=== PATIENT | female | born 1935 | race Caucasian/White ===

== ENCOUNTER 2017-01-03 02:18 | Emergency (ER) | payer MEDICARE, OTHER ==
[~2017-01-03] VITALS: Ht 149.9 cm; Wt 75.0 kg
[~2017-01-03 02:18] MED LIST: AMLO1TAB12 PO; BIMA12.5OS OU; CABE0.5T2 PO; CARV12.530 PO; DORZ210OS OP; GLIM2TAB3 PO; LORA10CA PO; METF500T4 PO; OMEP10 PO; SITA25 PO
[2017-01-03] MEDS ORDERED: CABE0.5T2 PO (02:28)
[2017-01-03] MEDS ORDERED: LEVO75 PO (02:28)
[2017-01-03] MEDS ORDERED: SITA100 PO (02:28)
[2017-01-03 02:37] LABS: GLUCOSE,POINT OF CARE 138 MG/DL (70-110)
[2017-01-03 02:39] LABS: BASOPHILS # (AUTO) 0.05 K/uL (0.00-0.20); BASOPHILS % (AUTO) 0.7 % (0.0-2.0); EOSINOPHILS # (AUTO) 0.33 K/uL (0.00-0.70); EOSINOPHILS % (AUTO) 4.69 % (1.0-6.0); HEMOGLOBIN 13.2 g/dL (12.0-16.0); LYMPHOCYTES # (AUTO) 2.2 K/uL (1.0-4.8); LYMPHOCYTES % (AUTO) 32.2 % (22.0-44.0); MEAN CORPUSCULAR HEMOGLOBIN 28.4 pg (26.0-34.0); MEAN CORPUSCULAR HGB CONC 32.9 G/dL (31.0-37.0); MEAN CORPUSCULAR VOLUME 86 fL (80-100); MONOCYTES # (AUTO) 0.5 K/uL (0.1-1.0); MONOCYTES % (AUTO) 7.4 % (2.0-9.0); NEUTROPHILS # (AUTO) 3.8 K/uL (1.8-7.7); NEUTROPHILS % (AUTO) 55.1 % (40.0-70.0); PLATELET COUNT (AUTO) 187 K/uL (150-450); RED BLOOD CELL COUNT(AUTO) 4.64 MIL/uL (4.00-5.20); RED CELL DISTRIBUTION WIDTH 14.6 % (11.5-14.5)
[2017-01-03 02:48] LABS: ANION GAP 3 mmol/L (8-16); CALCIUM, TOTAL 9.3 mg/dL (8.8-10.5); CARBON DIOXIDE 35 mmol/L (22-29); CHLORIDE 104 mmol/L (98-107); CREATININE 0.88 mg/dL (0.60-1.30); GLOMERULAR FILTR. RATE CALC > 60 mL/min (>60); POTASSIUM 4.2 mmol/L (3.5-5.1); SODIUM SERUM 142 mmol/L (136-145); UREA NITROGEN, BLOOD 11 mg/dL (7-18)
[2017-01-03 02:53] LABS: ALANINE AMINOTRANSFERASE 16 U/L (12-78); ALBUMIN 3.4 g/dL (3.4-5.0); ASPARTATE AMINOTRANSFERASE 17 U/L (15-37); BILIRUBIN,TOTAL 0.4 mg/dL (0.1-1.0); TOTAL PROTEIN, SERUM 7.4 g/dL (6.4-8.2)
[2017-01-03] MEDS ORDERED: CARVEDILOL 3.125 MG TABLET PO ONE (03:15)
[2017-01-03] MEDS ORDERED: ACETAMINOPHEN 500 MG TABLET PO ONE (03:15)
[2017-01-03 05:02] VITALS: BP 135/71
== END 2017-01-03 05:12 | disposition home or self-care (01) ==
LOC: EMS 02:22
DX: R51 Headache (principal); E11.9 Type 2 diabetes mellitus without complications; I11.9 Hypertensive heart disease without heart failure; I51.9 Heart disease, unspecified; Z88.0 Allergy status to penicillin; Z88.8 Allergy status to other drugs, medicaments and biological substances; Z85.89 Personal history of malignant neoplasm of other organs and systems
CPT/HCPCS: 70450; 82962; 99285

== ENCOUNTER 2019-01-11 13:59 | Emergency (ER) | payer MEDICARE, OTHER ==
[~2019-01-11] VITALS: Ht 149.9 cm; Wt 61.4 kg
[~2019-01-11 13:59] MED LIST changes: +LEVO75 PO; +METF-444 PO; -METF500T4 PO; +SITA100 PO; -SITA25 PO
[2019-01-11 14:15] LABS: GLUCOSE,POINT OF CARE 119 MG/DL (70-110)
[2019-01-11] MEDS ORDERED: LIDOCAINE 5% TRANSDERMAL PATCH TD ONE (15:15)
[2019-01-11] MEDS ORDERED: ACETAMINOPHEN 500 MG TABLET PO ONE (15:15)
[2019-01-11 16:52] VITALS: BP 155/77
== END 2019-01-11 17:04 | disposition home or self-care (01) ==
LOC: EMS 14:01
DX: S39.012A Strain of muscle, fascia and tendon of lower back, initial encounter (principal); M46.96 Unspecified inflammatory spondylopathy, lumbar region; E11.9 Type 2 diabetes mellitus without complications; I11.9 Hypertensive heart disease without heart failure; E03.9 Hypothyroidism, unspecified; Z88.0 Allergy status to penicillin; Z88.8 Allergy status to other drugs, medicaments and biological substances; W19.XXXA Unspecified fall, initial encounter; Y93.89 Activity, other specified; Y92.89 Other specified places as the place of occurrence of the external cause; Y99.8 Other external cause status
CPT/HCPCS: 72072; 72100

== ENCOUNTER → 2019-03-20 | Outpatient (CLI) | payer MEDICARE, OTHER ==
[~2019-03-20] MED LIST changes: -GLIM2TAB3 PO; +GLIM2TAB4 PO
== END | disposition home or self-care (01) ==
LOC: LABPV 14:52
PROVIDERS: ATTEND Internal Medicine
DX: R05 Cough (principal)

== ENCOUNTER 2021-01-07 11:44 | Emergency (ER) | payer MEDICARE, OTHER ==
[~2021-01-07] VITALS: Ht 152.4 cm; Wt 68.2 kg
[~2021-01-07 11:44] MED LIST changes: -BIMA12.5OS OU; +BIMA2.5D4 OU; +GLIM2TAB30 PO; -GLIM2TAB4 PO
[2021-01-07] MEDS ORDERED: AMLO-383 PO (12:08)
[2021-01-07] MEDS ORDERED: CARV25 PO (12:08)
[2021-01-07] MEDS ORDERED: ASPI-1227 PO (12:08)
[2021-01-07] MEDS ORDERED: ALEN70TA65 PO (12:08)
[2021-01-07] MEDS ORDERED: GABA-1181 PO (12:08)
[2021-01-07] MEDS ORDERED: METF-960 PO (12:08)
[2021-01-07] MEDS ORDERED: HYDR25TA84 PO (12:08)
[2021-01-07 13:15] LABS: BASOPHILS % (AUTO) 0.6 % (0.0-2.0); EOSINOPHILS % (AUTO) 1.5 % (1.0-6.0); HEMATOCRIT 39.7 % (36-46); HEMOGLOBIN 13.1 g/dL (12.0-16.0); LYMPHOCYTES # (AUTO) 0.9 K/uL (1.0-4.8); LYMPHOCYTES % (AUTO) 19.1 % (22.0-44.0); MEAN CORPUSCULAR VOLUME 88 fL (80-100); MONOCYTES # (AUTO) 0.4 K/uL (0.1-1.0); MONOCYTES % (AUTO) 8.1 % (2.0-9.0); NEUTROPHILS # (AUTO) 3.3 K/uL (1.8-7.7); NEUTROPHILS % (AUTO) 70.7 % (40.0-70.0); PLATELET COUNT (AUTO) 124 K/uL (150-450); RED BLOOD CELL COUNT(AUTO) 4.53 MIL/uL (4.00-5.20); RED CELL DISTRIBUTION WIDTH 14.5 % (11.5-14.5)
[2021-01-07] MEDS ORDERED: ONDANSETRON HCL 4 MG/2 ML VIAL IVP ONE (13:15)
[2021-01-07] MEDS ORDERED: ACETAMINOPHEN 500 MG TABLET PO ONE (13:15)
[2021-01-07] MEDS ORDERED: SODIUM CHLORIDE 0.9% 500 ML IV ONE (13:15)
[2021-01-07 13:21] LABS: CALCIUM, TOTAL 8.9 mg/dL (8.8-10.5); CREATININE 1.06 mg/dL (0.60-1.30); POTASSIUM 3.4 mmol/L (3.5-5.1)
[2021-01-07] MEDS ORDERED: SODIUM CHLORIDE 0.9% 100 ML ONE (13:23)
[2021-01-07] MEDS ORDERED: IOHEXOL 350 MG/ML 100 ML VIAL ONE (13:23)
[2021-01-07 13:36] LABS: BILIRUBIN,TOTAL 0.4 mg/dL (0.1-1.0); TOTAL PROTEIN, SERUM 6.7 g/dL (6.4-8.2)
[2021-01-07] MEDS ORDERED: FAMOTIDINE 10 MG/ML 2 ML VIAL IVP ONE (13:45)
[2021-01-07] MEDS ORDERED: MAG HYDROX/AL HYDROX/SIMETH 30 ML SUSP UDCUP PO ONE (13:45)
[2021-01-07] MEDS ORDERED: MetroNIDAZOLE 250 MG TABLET PO ONE (14:45)
[2021-01-07] MEDS ORDERED: CIPROFLOXACIN HCL 250 MG TABLET PO ONE (14:45)
[2021-01-07 15:08] LABS: COVID AG,FIA SOURCE NASOPHARYNGEAL
[2021-01-07 15:12] LABS: APPEARANCE,URINE CLOUDY (CLEAR); BILIRUBIN,URINE NEGATIVE (NEGATIVE); GLUCOSE, URINE (UA) NEGATIVE (NEGATIVE); KETONES,URINE NEGATIVE (NEGATIVE); LEUKOCYTE ESTERASE ,URINE MODERATE (NEGATIVE); NITRATE,URINE POSITIVE (NEGATIVE); OCCULT BLOOD,URINE SMALL (NEGATIVE); PH,URINE 6.5 (5.0-8.0); PROTEIN,URINE NEGATIVE (NEGATIVE); UROBILINOGEN,URINE 0.2 mg/dL (<=1.0)
[2021-01-07 15:28] VITALS: BP 128/65
[2021-01-07 15:55] LABS: BACTERIA,URINE Moderate /HPF (None Seen); RBC,URINE 0-2 /HPF (0-2); SQUAMOUS EPITHELIAL CELL,UR Rare /LPF (None Seen)
== END 2021-01-07 15:38 | disposition home or self-care (01) ==
LOC: EMS 11:49
DX: K52.9 Noninfective gastroenteritis and colitis, unspecified (principal); Z20.822 Contact with and (suspected) exposure to COVID-19; I11.9 Hypertensive heart disease without heart failure; E11.9 Type 2 diabetes mellitus without complications; Z79.82 Long term (current) use of aspirin; Z79.84 Long term (current) use of oral hypoglycemic drugs; Z79.899 Other long term (current) drug therapy; Z88.0 Allergy status to penicillin; Z88.8 Allergy status to other drugs, medicaments and biological substances
CPT/HCPCS: 36415; 74022; 74177; 80053; 81001; 82962; 83690; 84484; 85025; 87086; 87426; 93005; 96361; 96374; 96375; 99285; A9575; J2405; J3490; J7040; J7050

== ENCOUNTER → 2022-12-03 | Outpatient (CLI) | payer MEDICARE, OTHER ==
[~2022-12-03] MED LIST changes: +ALEN70TA65 PO; -AMLO1TAB12 PO; +ASPI-1227 PO; -CARV12.530 PO; +DORZ10DR6 OP; -DORZ210OS OP; -GLIM2TAB30 PO; -LEVO75 PO; -LORA10CA PO; -METF-444 PO; -SITA100 PO
== END | disposition home or self-care (01) ==
LOC: RADPV 09:35
PROVIDERS: ATTEND Internal Medicine
DX: I87.2 Venous insufficiency (chronic) (peripheral) (principal); M79.606 Pain in leg, unspecified; R94.39 Abnormal result of other cardiovascular function study; I47.1 Supraventricular tachycardia
CPT/HCPCS: 93925; 93970